=== PATIENT | female | born 1995 | race Two or more races ===

== ENCOUNTER 2019-09-21 17:07 | Emergency (ER) | payer OTHER ==
[~2019-09-21] VITALS: Ht 157.5 cm; Wt 61.2 kg
== END 2019-09-22 04:31 | disposition home or self-care (01) ==
LOC: ER 17:07 → CPU-OBS 17:36 → ER 17:36
DX: R00.2 Palpitations (principal)
CPT/HCPCS: G0378; G0379; 93005